=== PATIENT | male | born 1945 | race Caucasian/White ===

== ENCOUNTER → 2021-12-16 | Day surgery (SDC) | payer OTHER ==
[~2021-12-16] VITALS: Ht 177.8 cm; Wt 89.4 kg
[~2021-12-16] MED LIST: ACIDOPHILUS1 EACH PO; AMLODIPINE BESYL5 MG PO; ASPIRIN325 MG PO; B-121000 MCG PO; BACLOFEN10 MG PO; CARVEDILOL25 MG PO; CLARITIN10 M2 PO; CRESTOR40 MG PO; DICLOFONO2.5 GM TP; EYE DROPS15 M1 OP; FLONASE 0.05% N16 GM; IRON325 M1 PO; LISINOPRIL5 MG PO; MONISTAT SOOTHI42 GM TP; OMEPRAZOLE20 MG PO; OXYBUTYNIN CHLOR5 MG PO
== END | disposition home or self-care (01) ==
LOC: OR 05:44
DX: L72.0 Epidermal cyst (principal); I10 Essential (primary) hypertension; K21.9 Gastro-esophageal reflux disease without esophagitis; C95.10 Chronic leukemia of unspecified cell type not having achieved remission; E78.5 Hyperlipidemia, unspecified; G82.20 Paraplegia, unspecified; M19.90 Unspecified osteoarthritis, unspecified site; I70.1 Atherosclerosis of renal artery; Z20.822 Contact with and (suspected) exposure to COVID-19; Z88.8 Allergy status to other drugs, medicaments and biological substances; Z91.030 Bee allergy status; Z79.82 Long term (current) use of aspirin; Z95.828 Presence of other vascular implants and grafts
CPT/HCPCS: J0690; J2704; J3010; J7030; J7120